=== PATIENT | male | born 1985 | race Caucasian/White ===

== ENCOUNTER 2021-03-16 22:28 | Emergency (ER) | payer SELFPAY ==
[~2021-03-16] VITALS: Ht 167.6 cm; Wt 86.2 kg
[2021-03-16 22:30] VITALS: BP_SYST 152
[2021-03-16] MEDS ORDERED: ASPIRIN 81 MG TAB.CHEW PO ONE (23:30)
== END 2021-03-17 00:25 | disposition left against medical advice (07) ==
LOC: SED 22:28
DX: R07.9 Chest pain, unspecified (principal); Z53.21 Procedure and treatment not carried out due to patient leaving prior to being seen by health care provider
CPT/HCPCS: 93005

== ENCOUNTER 2021-12-08 18:56 | Emergency (ER) | payer MEDICAID ==
[~2021-12-08] VITALS: Ht 167.6 cm; Wt 90.7 kg
[2021-12-08 19:03] VITALS: BP_SYST 122
== END 2021-12-08 20:20 | disposition left against medical advice (07) ==
LOC: SED 18:56
DX: S01.81XA Laceration without foreign body of other part of head, initial encounter (principal); W01.0XXA Fall on same level from slipping, tripping and stumbling without subsequent striking against object, initial encounter; Y93.89 Activity, other specified; Y92.89 Other specified places as the place of occurrence of the external cause; Y99.8 Other external cause status; Z53.21 Procedure and treatment not carried out due to patient leaving prior to being seen by health care provider

== ENCOUNTER 2023-03-24 02:05 | Emergency (ER) | payer MEDICAID ==
[~2023-03-24] VITALS: Ht 170.2 cm; Wt 86.2 kg
[2023-03-24 02:14] VITALS: BP_SYST 124; PULSE 64; RESP 20; TEMP 98.4; O2SAT 100
[2023-03-24] MEDS ORDERED: KETOROLAC TROMETHAMINE 60 MG/2 ML VIAL IM ONE (03:15)
[2023-03-24] MEDS ORDERED: IBUP-1971 PO (03:18)
[2023-03-24] MEDS ORDERED: SULF1TAB48 PO (03:18)
[2023-03-24 03:28] VITALS: BP_SYST 124; PULSE 64; RESP 20; TEMP 98.4; O2SAT 100
== END 2023-03-24 03:28 | disposition home or self-care (01) ==
LOC: SED 02:05
DX: L02.214 Cutaneous abscess of groin (principal); R10.31 Right lower quadrant pain; Z88.1 Allergy status to other antibiotic agents; Z79.899 Other long term (current) drug therapy
CPT/HCPCS: 99283; 96372; J1885

== ENCOUNTER 2023-04-12 04:18 | Emergency (ER) | payer MEDICAID ==
[~2023-04-12] VITALS: Ht 170.2 cm; Wt 77.1 kg
[~2023-04-12 04:18] MED LIST: IBUP-1971 PO; SULF1TAB48 PO
[2023-04-12 04:26] VITALS: BP_SYST 134; PULSE 109; RESP 18; TEMP 96.7; O2SAT 97
[2023-04-12] MEDS ORDERED: CEPH-548 PO (04:54)
[2023-04-12] MEDS ORDERED: SULF1TAB48 PO (04:54)
[2023-04-12] MEDS ORDERED: cephALEXin 500 MG CAPSULE PO ONE (05:00)
[2023-04-12] MEDS ORDERED: SULFAMETHOXAZOLE/TRIMETHOPR DS 1 TABLET PO ONE (05:00)
[2023-04-12 05:29] VITALS: BP_SYST 131; PULSE 100; RESP 16; O2SAT 95
== END 2023-04-12 05:29 | disposition home or self-care (01) ==
LOC: SED 04:18
DX: L02.31 Cutaneous abscess of buttock (principal); F17.290 Nicotine dependence, other tobacco product, uncomplicated; Z71.6 Tobacco abuse counseling; Z88.1 Allergy status to other antibiotic agents; Z79.899 Other long term (current) drug therapy
CPT/HCPCS: 99283

== ENCOUNTER 2023-04-13 04:11 | Emergency (ER) | payer MEDICAID ==
[~2023-04-13] VITALS: Ht 170.2 cm; Wt 77.1 kg
[~2023-04-13 04:11] MED LIST changes: +CEPH-548 PO
[2023-04-13 04:13] VITALS: BP_SYST 129; PULSE 90; RESP 18; TEMP 98.7; O2SAT 100
[2023-04-13 04:28] VITALS: BP_SYST 129; PULSE 90; RESP 18; TEMP 98.7; O2SAT 100
== END 2023-04-13 04:28 ==
LOC: SED 04:11
DX: Z02.89 Encounter for other administrative examinations (principal); L02.31 Cutaneous abscess of buttock; Z88.1 Allergy status to other antibiotic agents; Z79.899 Other long term (current) drug therapy
CPT/HCPCS: 99283

== ENCOUNTER 2023-07-10 05:06 | Emergency (ER) | payer MEDICAID ==
[~2023-07-10] VITALS: Ht 170.2 cm; Wt 74.8 kg
[2023-07-10 05:15] VITALS: BP_SYST 117; RESP 18; TEMP 97; O2SAT 99
[2023-07-10] MEDS ORDERED: ACETAMINOPHEN 325 MG TABLET PO ONE (05:30)
[2023-07-10 05:59] LABS: BASOPHILS % (AUTO) 0.2 % (0.0-2.0); EOSINOPHILS # (AUTO) 0.1 K/uL (0.0-0.4); EOSINOPHILS % (AUTO) 0.6 % (0.0-4.0); HEMATOCRIT 43.4 % (36-54); HEMOGLOBIN 14.6 g/dL (14.0-18.0); LYMPHOCYTES # (AUTO) 1.3 K/uL (1.0-5.5); LYMPHOCYTES % (AUTO) 9.1 % (20.5-51.5); MEAN CORPUSCULAR HEMOGLOBIN 29 pg (27-31); MEAN CORPUSCULAR HGB CONC 34 % (32-36); MEAN CORPUSCULAR VOLUME 87 fL (79.0-98.0); MONOCYTES # (AUTO) 1.6 K/uL (0.0-1.0); MONOCYTES % (AUTO) 10.8 % (1.7-9.3); NEUTROPHILS # (AUTO) 11.4 K/uL (1.8-7.7); NEUTROPHILS % (AUTO) 79.3 % (40.0-70.0); PLATELET COUNT (AUTO) 253 K/uL (130-430); RED BLOOD CELL COUNT(AUTO) 4.97 MIL/uL (4.2-6.2); RED CELL DISTRIBUTION WIDTH 14.5 % (9.0-15.0); WHITE BLOOD COUNT (AUTO) 14.4 K/uL (4.8-10.8)
[2023-07-10 06:17] LABS: INFLUENZA TYPE A Negative (NEGATIVE); INFLUENZA TYPE B NEGATIVE (NEGATIVE)
[2023-07-10 06:23] LABS: STREPTOCOCCUS A SCREEN (RAPID) POSITIVE (NEGATIVE)
[2023-07-10 06:34] LABS: ANION GAP 10 (5-15); CALCIUM 9.2 mg/dL (8.4-11.0); CARBON DIOXIDE 26 mmol/L (23-29); CHLORIDE 97 mmol/L (98-107); CREATININE 1.03 mg/dL (0.55-1.30); GFR AFRICAN AMERICAN 105 mL/min (>90); GLUCOSE 106 mg/dL (74-106); POTASSIUM 3.5 mmol/L (3.5-5.1); SODIUM SERUM 133 mmol/L (136-145); UREA NITROGEN, BLOOD 12 mg/dL (8-21)
[2023-07-10 06:41] LABS: ALANINE AMINOTRANSFERASE 48 U/L (12-78); ALBUMIN 3.4 g/dL (3.4-4.8); ASPARTATE AMINOTRANSFERASE 23 U/L (10-37); BILIRUBIN,DIRECT 0.1 mg/dL (0.0-0.3); TOTAL BILIRUBIN 0.4 mg/dL (0.0-1.0); TOTAL PROTEIN, SERUM 7.1 g/dL (6.4-8.3)
[2023-07-10 06:45] LABS: GFR NON AFRICAN-AMERICAN 86 mL/min (>90)
[2023-07-10] MEDS ORDERED: CLE150 PO (06:53)
[2023-07-10 07:15] VITALS: BP_SYST 122; PULSE 95; RESP 18; TEMP 98.2; O2SAT 100
== END 2023-07-10 07:18 | disposition home or self-care (01) ==
LOC: SED 05:06
DX: R07.89 Other chest pain (principal); J02.9 Acute pharyngitis, unspecified; Z88.1 Allergy status to other antibiotic agents; Z79.899 Other long term (current) drug therapy; Z20.822 Contact with and (suspected) exposure to COVID-19
CPT/HCPCS: 36415; 71045; 80048; 80076; 83880; 84484; 85025; 86403; 93005; 99285